=== PATIENT | male | born 1950 | race American Indian/Alaskan Native ===

== ENCOUNTER 2022-02-10 12:19 | Emergency (ER) | payer OTHER ==
[2022-02-10 12:31] VITALS: BP 179/58
--- NOTE | 2022-02-10 12:36 | Emergency Department Report ---
Chief Complaint: Abdominal Pain Stated Complaint: BOWEL MOVEMENT ISSUES - HPI History of Present Illness: Patient persents to ER for abdomen pain and not able to relieve himself for 2 weeks. Has tried enema and epsome salt laxitive. - ROS Review of Systems: AxO times 3. NAD breath effortless pulse stable ambulating without difficulties. - Exam Vital Signs: Vital Signs 02/10/22 12:30 Temperature 98.6 F Pulse Rate 52 L Respiratory 18 Rate Blood Pressure 179/58 O2 Sat by Pulse 98 Oximetry MSE screening note: Focused history and physical exam performed. Due to findings the following was ordered: Patient persents to ER for abdomen pain and not able to relieve himself for 2 weeks. Has tried enema and epsome salt laxitive. KUB has been ordered. ED Disposition for MSE Condition: Stable
--- NOTE | 2022-02-10 13:00 | XRay Report ---
ABDOMEN 1 VIEW 02/10/2022 11:51 AM INDICATION / CLINICAL INFORMATION: abd pain constipation. COMPARISON: None available. FINDINGS: TUBES / LINES: None. BOWEL GAS PATTERN: Nonobstructive bowel gas pattern. Formed stool in the ascending colon, suggesting delayed transit. FREE AIR / EXTRALUMINAL GAS: None. ADDITIONAL FINDINGS: No significant additional findings. IMPRESSION: 1. Formed stool in the ascending colon, suggesting delayed transit. Signer Name: Keith Ford MD Signed: 02/10/2022 12:56 PM Workstation Name: [employer]
--- NOTE | 2022-02-10 14:32 | Emergency Department Report ---
ED Abdominal Pain HPI - General Chief Complaint: Abdominal Pain Stated Complaint: BOWEL MOVEMENT ISSUES Source: patient Mode of arrival: Ambulatory Limitations: No Limitations - History of Present Illness MD Complaint: abdominal pain - Related Data Previous Rx's Medication Instructions Recorded Last Taken Type Polyethylene Glycol 3350 [Miralax] 119 gm PO BID #1 box 02/10/22 Unknown Rx Allergies Allergy/AdvReac Type Severity Reaction Status Date / Time lisinopril Allergy Angioedema Verified 02/10/22 12:27 ED Review of Systems ROS: Stated complaint: BOWEL MOVEMENT ISSUES Other details as noted in HPI Comment: All other systems reviewed and negative Constitutional: denies: chills, fever Eyes: denies: eye pain, eye discharge, vision change ENT: denies: ear pain, throat pain Respiratory: denies: cough, shortness of breath, wheezing Cardiovascular: denies: chest pain, palpitations Gastrointestinal: abdominal pain, constipation. denies: nausea, vomiting, diarrhea Genitourinary: denies: urgency, dysuria Musculoskeletal: denies: back pain, joint swelling, arthralgia Skin: denies: rash, lesions Neurological: denies: headache, weakness, paresthesias Psychiatric: denies: anxiety, depression ED Past Medical Hx - Past Medical History Hx Hypertension: Yes Additional medical history: ANXIETY/ DEPRESSION - Surgical History Additional Surgical History: BRAIN - Medications Home Medications: Home Medications Medication Instructions Recorded Confirmed Last Taken Type Polyethylene Glycol 3350 [Miralax] 119 gm PO BID #1 box 02/10/22 Unknown Rx ED Physical Exam - General Limitations: No Limitations General appearance: alert - Head Head exam: Present: atraumatic - Eye Eye exam: Present: normal appearance - ENT ENT exam: Present: normal exam - Neck Neck exam: Present: normal inspection, full ROM - Respiratory Respiratory exam: Present: normal lung sounds bilaterally - Cardiovascular Cardiovascular Exam: Present: regular rate - GI/Abdominal GI/Abdominal exam: Present: tenderness. Absent: guarding - Extremities Exam Extremities exam: Present: normal inspection, full ROM - Back Exam Back exam: Present: normal inspection - Neurological Exam Neurological exam: Present: alert, oriented X3 ED Course Vital Signs 02/10/22 12:30 Temperature 98.6 F Pulse Rate 52 L Respiratory 18 Rate Blood Pressure 179/58 O2 Sat by Pulse 98 Oximetry ED Medical Decision Making - Radiology Data Radiology results: report reviewed [facility] [address] [place] [address] XRay Report Signed Patient: RAO SAMUEL MR#: [id number] : 1950 Acct:[id number] Age/Sex: 71 / M ADM Date: 02/10/22 Loc: ED Attending Dr: Ordering Physician: IRINA VERAS Date of Service: 02/10/22 Procedure(s): XR abdomen 1V ap Accession Number(s): [id number] cc: IRINA VERAS Fluoro Time In Minutes: ABDOMEN 1 VIEW 02/10/2022 11:51 AM INDICATION / CLINICAL INFORMATION: abd pain constipation. COMPARISON: None available. FINDINGS: TUBES / LINES: None. BOWEL GAS PATTERN: Nonobstructive bowel gas pattern. Formed stool in the ascending colon, suggesting delayed transit. FREE AIR / EXTRALUMINAL GAS: None. ADDITIONAL FINDINGS: No significant additional findings. IMPRESSION: 1. Formed stool in the ascending colon, suggesting delayed transit. Signer Name: Eli Kendall MD Signed: 02/10/2022 12:56 PM Workstation Name: [id number] Transcribed By: CLARKE Dictated By: ELI KENDALL MD Electronically Authenticated By: ELI KENDALL MD Signed Date/Time: 02/10/22 125 DD/ 54 TD/TT: Print Critical care attestation.: If time is entered above; I have spent that time in minutes in the direct care of this critically ill patient, excluding procedure time. ED Disposition Clinical Impression: Constipation by delayed colonic transit Disposition: 01 HOME / SELF CARE / HOMELESS Is pt being admited?: No Does the pt Need Aspirin: No Condition: Stable Instructions: Constipation, Adult, [id number] Additional Instructions: Take medication as prescribed. Follow up with a primary care provider and gastroenteritis. Prescriptions: Polyethylene Glycol 3350 [Miralax] 119 gm PO BID #1 box Referrals: [facility] [Provider Group] - 3-5 Days TRISTA LYNCH MD [Staff Physician] - 3-5 Days LAUREANO REYES PA [Physician Isotope Technologist] - 3-5 Days KIM GAO MD [Staff Physician] - 3-5 Days Time of Disposition: 14:36
== END 2022-02-10 15:07 | disposition home or self-care (01) ==
LOC: ED 12:19
DX: K59.00 Constipation, unspecified (principal); I10 Essential (primary) hypertension; Z91.09 Other allergy status, other than to drugs and biological substances
CPT/HCPCS: 74018; 99283